=== PATIENT | female | born 1955 | race Caucasian/White ===

== ENCOUNTER 2016-11-05 16:12 | Emergency (ER) | payer OTHER ==
[~2016-11-05] VITALS: Wt 68.0 kg
[2016-11-05] MEDS ORDERED: IBUPROFEN 600 MG TAB PO ONE (17:00)
--- NOTE | 2016-11-05 17:18 | ERD ---
ER Documentation Chief Complaint Date/Time DATE: 11/05/16 TIME: 17:12 Chief Complaint COUGH AND SORE THROAT FOR THE PAST 2WKS WITH LARYNGITIS HPI This is a 61-year-old female presenting to emergency department with cough, fever, sore throat and body aches x 2 weeks. Patient states she has a productive cough with clear sputum. Tactile fevers at home. Patient states she has sore throat with no difficult to swallowing or drooling. Patient went to her primary care office and was given prescription for Cefdinir for possible "throat infection" per patient. Patient denies abdominal pain, nausea, vomiting or diarrhea. No dysuria or hematuria. No urinary frequency or urinary urgency. No pelvic pain. ROS All systems reviewed and are negative except as per history of present illness. Medications Home Meds Active Scripts Ibuprofen* (Motrin*) 400 Mg Tab, 400 MG PO Q6, #15 TAB Prov:JAVIER PIERCE NP 11/05/16 Guaifenesin/Codeine Phosphate (CHERATUSSIN AC SYRUP) 118 Ml Liquid, 5 ML PO Q4H Y for COUGH, #118 ML Prov:JAVIER PIERCE NP 11/05/16 PMhx/Soc Medical and Surgical Hx: pt denies Medical Hx, pt denies Surgical Hx Hx Alcohol Use: No Hx Substance Use: No Hx Tobacco Use: No Smoking Status: Never smoker Physical Exam Vitals Vital Signs Date Time Temp Pulse Resp B/P Pulse Ox O2 Delivery O2 Flow Rate FiO2 11/05/16 16:19 100.2 102 21 123/68 95 Physical Exam Const: No acute distress, alert Head: Atraumatic Eyes: Normal Conjunctiva. ENT: Normal External Ears, Nose and Mouth No erythema or exudate to posterior pharynx. Neck: Full range of motion..~ No meningismus. No lymphadenopathy. Resp: Clear to auscultation bilaterally. No wheezing, rhonchi or crackles. No stridor or labored breathing. Cardio: Regular rate and rhythm, no murmurs Abd: Soft, non tender, non distended. Normal bowel sounds Skin: No petechiae or rashes Back: No midline or flank tenderness. No CVA tenderness Ext: No cyanosis, or edema Neur: Awake and alert Psych: Normal Mood and Affect Results 24 hrs Current Medications Medications (Trade) Dose Ordered Sig/Lev Route PRN Reason Start Time Stop Time Status Last Admin Dose Admin Ibuprofen (Motrin) 600 mg ONCE ONCE PO 11/05/16 17:00 11/05/16 17:01 DC 11/05/16 16:53 Guaifenesin (Robitussin Liquid Cup) 200 mg ONCE ONCE PO 11/05/16 18:30 11/05/16 18:31 DC 11/05/16 18:25 Procedures/MDM [place] [id number] Radiology Main Line: [phone] DIAGNOSTIC IMAGING REPORT Patient: LAURA BLACKWELL : 1955 Age: 61 Sex: F MR #: [id number] DOS: 11/05/16 1634 Ordering MD: JAVIER PIERCE NP Location: [facility] Room/Bed: PROCEDURE: XR Chest. CLINICAL INDICATION: cough, fever TECHNIQUE: Single frontal view of the chest was obtained. COMPARISON: None. FINDINGS: The cardiomediastinal silhouette is normal size. Pulmonary vasculature is within normal limits. The lungs are clear. No signs of pleural fluid or pneumothorax are seen. The osseous structures and soft tissues are unremarkable. IMPRESSION: No evidence for active cardiopulmonary disease. RPTAT: DD MDM: This is a 61-year-old female presenting to ER with cough, fever, sore throat and body aches x 2 weeks. Cough is productive with clear sputum. Temp of 100.2F upon arrival to ED. Patient given ibuprofen. Chest x-ray reviewed by radiologist as no evidence for active cardiopulmonary disease. Influenza swab and rapid strep swab are negative. Temperature is reduced and vital signs remained stable. No signs or symptoms of respiratory distress. Patient given guaifenesin p.o. while in the ED. Upon reassessment, patient states cough has improved. Low suspicion for pneumonia, pleural effusion, pneumothorax or acute OR. Differential diagnosis includes but not limited to URI, influenza, otitis media , otitis externa, asthma exacerbation, croup, bronchitis, bronchiolitis and costochondritis. Patient is appropriate for outpatient management and will be given prescription for ibuprofen. Instructed patient to follow-up with primary care provider in the next 2-3 days for reassessment and additional management. Return to ED for any high fever, chest pain, difficulty breathing, shortness breath, wheezing, vomiting, diarrhea, abdominal pain or any new or worsening symptoms. Patient verbalizes understanding. All questions answered at discharge. Departure Diagnosis: Primary Impression: URI (upper respiratory infection) URI type: unspecified viral URI Qualified Code: J06.9 - Viral upper respiratory tract infection Condition: JAVIER Bauer NP Nov 05, 2016 17:18
--- NOTE | 2016-11-05 17:52 | RADRPT ---
PROCEDURE: XR Chest. CLINICAL INDICATION: cough, fever TECHNIQUE: Single frontal view of the chest was obtained. COMPARISON: None. FINDINGS: The cardiomediastinal silhouette is normal size. Pulmonary vasculature is within normal limits. Th e lungs are clear. No signs of pleural fluid or pneumothorax are seen. The osseous structures and soft tissues are unre markable. IMPRESSION: No evidence for active cardiopulmonary disease. RPTAT: DD .Rigo Love MD, MD Date Time Electronically viewed and signed by .Rigo Love MD, on 11/05/2016 17:51 .T/
[2016-11-05] MEDS ORDERED: GUAIFENESIN 20 MG/ML 5ML CUP PO ONE (18:30)
[2016-11-05] MEDS ORDERED: GUAI118L22 PO (19:03)
[2016-11-05] MEDS ORDERED: IBUP400T22 PO (19:07)
[2016-11-05 19:41] VITALS: BP 116/61; PULSE 91; RESP 25; TEMP 98.5
== END 2016-11-05 19:41 | disposition home or self-care (01) ==
LOC: FTE 16:12
DX: J06.9 Acute upper respiratory infection, unspecified (principal)
CPT/HCPCS: 71010; 87400; 87880